=== PATIENT | male | born 2000 | race Caucasian/White ===

== ENCOUNTER 2020-01-06 22:33 | Emergency (ER) | payer SELFPAY ==
[~2020-01-06] VITALS: Ht 167.6 cm; Wt 66.3 kg
[2020-01-06 22:38] VITALS: Ht 167.6 cm; Wt 66.3 kg
[2020-01-06 23:28] VITALS: BP 117/72
== END 2020-01-06 23:20 | disposition home or self-care (01) ==
LOC: ED 22:33
DX: R51 Headache (principal)